=== PATIENT | male | born 1960 | race Caucasian/White ===

== ENCOUNTER 2022-02-25 00:34 | Inpatient (IN) | payer BC ==
[2022-02-25] MEDS ORDERED: HYDROmorphone 1 MG/ML Syringe IVPUSH ONE ×5 (02:17→09:20)
[2022-02-25] MEDS ORDERED: Ondansetron 4 MG/2 ML SDV IVPUSH ONE ×2 (02:17→09:12)
[2022-02-25] MEDS ORDERED: Sodium Chloride 0.9% 1,000 ML IV SCH (02:30)
[2022-02-25] MEDS ORDERED: Iopamidol 612 MG/ML 50 ML SDV IVPUSH ONE (03:07)
[2022-02-25] MEDS ORDERED: Iopamidol 612 MG/ML 100 ML Bottle IVPUSH ONE (03:07)
[2022-02-25] MEDS ORDERED: Sodium Chloride 0.9% 10 ML Syringe FLUSH ONE (03:07)
[2022-02-25] MEDS ORDERED: Lidocaine 1% 10 ML MDV ONE (05:01)
[2022-02-25] MEDS ORDERED: Lidocaine 1% with EPINEPHrine 1:100,000 20 ML MDV ONE (05:01)
[2022-02-25] MEDS ORDERED: Bupivacaine 0.5% 10 ML SDV ONE (05:02)
[2022-02-25] MEDS ORDERED: Lidocaine 1% with EPINEPHrine 1:100,000 10 ML MDV INJECT ONE (06:49)
[2022-02-25] MEDS ORDERED: Bupivacaine 0.5% 10 ML SDV INJECT ONE (06:50)
[2022-02-25] MEDS ORDERED: Ondansetron 4 MG/2 ML SDV IVPUSH PRN (12:18)
[2022-02-25] MEDS: HYDROmorphone 1 MG/ML Syringe IVPUSH PRN ×2 (12:53→16:13)
[2022-02-25] MEDS: Sodium Chloride 0.9% 1,000 ML IV SCH (12:55)
[2022-02-25] MEDS ORDERED: Docusate Sodium 100 MG Cap PO PRN (18:24)
[2022-02-25] MEDS ORDERED: HYDROmorphone 0.5 MG/0.5 ML Syringe IVPUSH PRN (18:24)
[2022-02-25] MEDS ORDERED: Ondansetron 4 MG Tab.DIS PO PRN (18:24)
[2022-02-25] MEDS ORDERED: PHENTERMINE HCL 37.5 MG PO SCH (18:45)
[2022-02-25] MEDS: Acetaminophen 325 MG Tab PO SCH (19:37)
[2022-02-25] MEDS: Latanoprost 0.005% Ophth Soln 2.5 ML Bottle EYEBOTH SCH (21:33)
[2022-02-25] MEDS: oxyCODONE 5 MG Tab PO PRN (21:34)
[2022-02-26] MEDS: Acetaminophen 325 MG Tab PO SCH ×4 (01:10→18:11)
[2022-02-26] MEDS: oxyCODONE 5 MG Tab PO PRN ×3 (04:09→21:04)
[2022-02-26] MEDS: Tamsulosin 0.4 MG Cap.ER PO SCH (08:18)
[2022-02-26] MEDS: Aspirin 81 MG Tab.EC PO SCH (08:18)
[2022-02-26] MEDS: Enoxaparin 40 MG/0.4 ML Syringe SUBCUT SCH (08:18)
[2022-02-26] MEDS: Sodium Chloride 0.9% 1,000 ML IV SCH (08:18)
[2022-02-26] MEDS ORDERED: Pravastatin 20 MG Tab PO SCH (21:00)
[2022-02-26] MEDS: Latanoprost 0.005% Ophth Soln 2.5 ML Bottle EYEBOTH SCH (21:07)
[2022-02-27] MEDS: Acetaminophen 325 MG Tab PO SCH ×3 (00:15→13:32)
[2022-02-27] MEDS: oxyCODONE 5 MG Tab PO PRN ×3 (03:21→14:51)
[2022-02-27] MEDS: Sodium Chloride 0.9% 1,000 ML IV SCH (03:21)
[2022-02-27] MEDS: Aspirin 81 MG Tab.EC PO SCH (08:47)
[2022-02-27] MEDS: Enoxaparin 40 MG/0.4 ML Syringe SUBCUT SCH (08:47)
[2022-02-27] MEDS: Tamsulosin 0.4 MG Cap.ER PO SCH (08:47)
[2022-02-27 16:34] VITALS: BP 142/85; PULSE 91
== END 2022-02-27 16:20 | disposition home or self-care (01) | DRG 135 ==
LOC: JD.ED 00:34 → UNDOADMIN 11:31 → JD.MS 11:31
PROVIDERS: ADMIT Surgery; ATTEND Surgery
PROC: 0W9B30Z Drainage of Left Pleural Cavity with Drainage Device, Percutaneous Approach (ICD-10-PCS; principal; 2022-02-25)
DX: S27.0XXA Traumatic pneumothorax, initial encounter (principal); S22.42XA Multiple fractures of ribs, left side, initial encounter for closed fracture; S42.102A Fracture of unspecified part of scapula, left shoulder, initial encounter for closed fracture; M19.90 Unspecified osteoarthritis, unspecified site; G89.29 Other chronic pain; T79.7XXA Traumatic subcutaneous emphysema, initial encounter; M54.9 Dorsalgia, unspecified; E78.00 Pure hypercholesterolemia, unspecified; N40.0 Benign prostatic hyperplasia without lower urinary tract symptoms; Z87.891 Personal history of nicotine dependence; Z79.82 Long term (current) use of aspirin; Z79.899 Other long term (current) drug therapy; Z88.0 Allergy status to penicillin; Z88.5 Allergy status to narcotic agent; Z86.16 Personal history of COVID-19; W17.89XA Other fall from one level to another, initial encounter; Y93.89 Activity, other specified; Y92.89 Other specified places as the place of occurrence of the external cause; Y99.8 Other external cause status
CPT/HCPCS: 36415; 71045; 71045-26; 71250; 71250-26; 71260; 71260-26; 74177; 74177-26; 80048; 80053; 81001; 85025; 85610; 85730; 94761; A9270-GY; J1170; J1650; J2405; J3490; J7030; Q9967

== ENCOUNTER 2024-12-05 06:48 | Day surgery (SDC) | payer BC, MEDICARE ==
[~2024-12-05 06:48] MED LIST: Propofol 200 MG/20 ML SDV ONE; propofoL 500 MG/50 ML 0 ML ONE
[2024-12-05] MEDS: Lactated Ringers 1,000 ML IV SCH (07:05)
[2024-12-05] MEDS ORDERED: Sodium Chloride 0.9% 10 ML Syringe FLUSH PRN (07:13)
[2024-12-05 08:46] VITALS: BP 132/84; PULSE 82
[2024-12-05] MEDS ORDERED: Sodium Chloride 0.9% 10 ML Syringe FLUSH SCH (09:00)
== END 2024-12-05 08:25 | disposition home or self-care (01) ==
LOC: JD.SDS 06:48
PROVIDERS: ATTEND Surgery
DX: Z12.11 Encounter for screening for malignant neoplasm of colon (principal); D12.3 Benign neoplasm of transverse colon; K57.30 Diverticulosis of large intestine without perforation or abscess without bleeding; K64.0 First degree hemorrhoids
CPT/HCPCS: 00811; 45380; 88305; J2704; J7120

== ENCOUNTER 2025-03-14 12:38 | Emergency (ER) | payer MEDICARE ==
[2025-03-14 12:48] VITALS: BP 144/99; PULSE 103
== END 2025-03-14 13:15 | disposition home or self-care (01) ==
LOC: JD.ED 12:38
DX: I83.891 Varicose veins of right lower extremity with other complications (principal); E78.00 Pure hypercholesterolemia, unspecified; Z88.5 Allergy status to narcotic agent; Z91.018 Allergy to other foods; Z79.82 Long term (current) use of aspirin; Z79.899 Other long term (current) drug therapy; Z86.16 Personal history of COVID-19
CPT/HCPCS: 99283